=== PATIENT | male | born 1980 | race Caucasian/White ===

== ENCOUNTER 2017-06-05 11:31 | Emergency (ER) | payer MEDICAID ==
[~2017-06-05] VITALS: Ht 175.3 cm; Wt 91.4 kg
[2017-06-05 12:00] VITALS: BP 128/100; Ht 175.3 cm; Wt 91.4 kg
== END 2017-06-05 12:48 | disposition home or self-care (01) ==
LOC: ED 11:31
DX: K62.5 Hemorrhage of anus and rectum (principal); K52.9 Noninfective gastroenteritis and colitis, unspecified

== ENCOUNTER 2018-09-10 20:31 | Emergency (ER) | payer MEDICAID ==
[~2018-09-10] VITALS: Ht 175.3 cm; Wt 85.7 kg
[2018-09-10 20:38] VITALS: Ht 175.3 cm; Wt 85.7 kg
[2018-09-10 20:57] LABS: PLATELET COUNT 296 x10^3mcL (130-400)
[2018-09-10 21:19] LABS: CALCIUM 8.9 mg/dL (8.5-10.1); CARBON DIOXIDE 24.3 mmol/L (21-32); CHLORIDE SERUM 103 mmol/L (98-107); GFR1 > 60 mL/min; GLUCOSE SERUM 114 mg/dL (74-106); POTASSIUM SERUM 3.8 mmol/L (3.5-5.1); SODIUM SERUM 136 mmol/L (136-145)
[2018-09-10 21:23] LABS: ALBUMIN 3.9 g/dL (3.4-5.0); ALKALINE PHOSPHATASE 102 U/L (46-116); ALT/SGPT 34 U/L (16-63); AST/SGOT 17 U/L (15-37); LIPASE 106 IU/L (73-393); TOTAL PROTEIN, SERUM 7.6 g/dL (6.4-8.2)
[2018-09-10 22:34] VITALS: BP 139/93
== END 2018-09-10 22:34 | disposition home or self-care (01) ==
LOC: ED 20:31
PROVIDERS: Emergency Medicine
DX: R10.13 Epigastric pain (principal); R07.89 Other chest pain
CPT/HCPCS: 36415; J1885; Q0092

== ENCOUNTER 2018-11-25 10:27 | Emergency (ER) | payer MEDICAID ==
[~2018-11-25] VITALS: Ht 175.3 cm; Wt 96.6 kg
[2018-11-25 10:30] VITALS: BP 121/93; Ht 175.3 cm; Wt 96.6 kg
== END 2018-11-25 12:39 | disposition home or self-care (01) ==
LOC: ED 10:27
DX: S39.012A Strain of muscle, fascia and tendon of lower back, initial encounter (principal); S29.012A Strain of muscle and tendon of back wall of thorax, initial encounter; S46.911A Strain of unspecified muscle, fascia and tendon at shoulder and upper arm level, right arm, initial encounter; V43.52XA Car driver injured in collision with other type car in traffic accident, initial encounter; Y93.I9 Activity, other involving external motion; Y92.413 State road as the place of occurrence of the external cause; Y99.8 Other external cause status
CPT/HCPCS: 72072

== ENCOUNTER 2020-02-03 03:34 | Emergency (ER) | payer MEDICAID, SELFPAY ==
[~2020-02-03] VITALS: Ht 175.3 cm; Wt 85.7 kg
[2020-02-03 03:50] VITALS: Ht 175.3 cm; Wt 85.7 kg
[2020-02-03 07:57] VITALS: BP 145/97
== END 2020-02-03 08:19 | disposition home or self-care (01) ==
LOC: ED 03:34
DX: J02.9 Acute pharyngitis, unspecified (principal); Z20.828 Contact with and (suspected) exposure to other viral communicable diseases
CPT/HCPCS: J8540; U0003-CS